=== PATIENT | female | born 1970 | race Caucasian/White ===

== ENCOUNTER → 2025-07-06 | Outpatient (CLI) | payer OTHER ==
--- NOTE | 2025-07-07 08:46 | HMCIMG ---
EXAM: CT Cardiac calcium scoring. CLINICAL HISTORY: CAD screening. TECHNIQUE: Thin collimated axial CT cardiac images were obtained. A CT scan is done according to ALARA (As Low As Reasonably Achievable). CONTRAST: None. COMPARISON: None provided. FINDINGS: Hepatic steatosis. Calcium Score: VESSEL Number of lesions Volume mm3 Equi. Mass/mg Calcium score LM 0 00.00 00.00 00.00 LAD 2 53.4 --.-- 83.6 LCX 3 42.8 --.-- 46.7 RCA 0 00.00 00.00 00.00 Total 5 96.2 --.-- 130.3 IMPRESSION: The calcium score is 130.3. This places the patient in the 96th percentile in comparison to a group of patients asymptomatic for coronary artery disease with the same age and gender. This means that 96% of females aged 55-59 have a calcium score that is lower than the patient's. /Shauna
== END | disposition home or self-care (01) ==
LOC: RAH 10:45
PROVIDERS: ATTEND Family Medicine
DX: Z13.6 Encounter for screening for cardiovascular disorders (principal); I25.10 Atherosclerotic heart disease of native coronary artery without angina pectoris
CPT/HCPCS: 75571